=== PATIENT | female | born 1980 | race Caucasian/White ===

== ENCOUNTER 2019-05-16 09:20 | Emergency (ER) | payer MEDICAID ==
[~2019-05-16] VITALS: Ht 175.3 cm; Wt 121.1 kg
[~2019-05-16 09:20] MED LIST: ALPR0.5T3 PO; OMEP20TA62 PO
--- NOTE | 2019-05-16 09:32 | NUR ---
39 Y/O FEMALE PRESENTS TO ED WITH C/O ABD PAIN. PER PT "I'M HAVING SOME PAIN IN MY LEFT ABDOMEN. I ENDED MY PERIOD THURSDAY. I USUALLY PRODUCE CYSTS. BUT IT'S A DIFFERENT PAIN. I HAVE SOME NAUSEA. THE PAIN DOESN'T WRAP AROUND TO MY BACK AND IT DOESN'T HURT WHEN I PEE. IT'S A VERY SHARP PAIN. LASTS 5-10 MINS. RIGHT NOW THE PAIN IS DULL." NO C/O V/D, TRAUMA, SYNCOPE, CP, SOB. PT PLACED ON CONT PULSE OX,NIBP. EDMD BEDSIDE. Addendum: 05/16/19 at 0948 by SUZI "LASTS 5-10 SECONDS" NOT MINTUES.
[2019-05-16] MEDS ORDERED: ONDANSETRON ODT 4 MG ONE (09:44)
[2019-05-16] MEDS ORDERED: AMLO10TA8 PO (09:47)
[2019-05-16 09:49] VITALS: BP 125/83
--- NOTE | 2019-05-16 09:49 | NUR ---
BEDSIDE REPORT TO JULEE CORDOVA.
--- NOTE | 2019-05-16 09:52 | NUR ---
PT TO IMAGING.
[2019-05-16 09:59] LABS: CULTURE INDICATED? YES; MICROSCOPIC INDICATED
[2019-05-16] MEDS ORDERED: ONDANSETRON ODT 4 MG PO ONE (10:00)
--- NOTE | 2019-05-16 10:11 | NUR ---
PATIENT BACK FROM ULTRASOUND. CALL BUTTON IN LAP. SIDE RAILS UP X2 FOR SAFETY.
[2019-05-16 10:23] LABS: BASOPHILS # (AUTO) 0.04 x10^3/uL (0-0.1); BASOPHILS % (AUTO) 1 % (0-1); EOSINOPHILS # (AUTO) 0.08 x10^3/uL (0-0.4); EOSINOPHILS % (AUTO) 1 % (1-7); LYMPHOCYTES # (AUTO) 2.35 x10^3/uL (1-3.4); LYMPHOCYTES % (AUTO) 31 % (22-44); MD NO; MEAN CORPUSCULAR HEMOGLOBIN 31.2 pg (27.0-34.8); MEAN CORPUSCULAR HGB CONC 33.5 g/dL (32.4-35.8); MEAN CORPUSCULAR VOLUME 93.1 fL (80-100); MEAN PLATELET VOLUME 7.5 fL (7.4-10.4); MONOCYTES # (AUTO) 0.44 x10^3/uL (0.2-0.8); MONOCYTES % (AUTO) 6 % (2-9); NEUTROPHILS # (AUTO) 4.58 x10^3/uL (1.8-6.8); NEUTROPHILS % (AUTO) 61 % (42-75); PLATELET COUNT 340 x10^3/uL (130-400); RED BLOOD COUNT 4.72 x10^6/uL (3.82-5.3); RED CELL DISTRIBUTION WIDTH 13.4 % (9.6-15.2)
[2019-05-16 10:36] LABS: ALANINE AMINOTRANSFERASE 33 U/L (12-78); ALBUMIN 3.4 g/dL (3.4-5.0); ANION GAP 7 mmol/L (5-15); CALCIUM 8.7 mg/dL (8.5-10.1); CHLORIDE 110 mmol/L (98-107); CREATININE 1.11 mg/dL (0.55-1.02)
[2019-05-16 10:40] LABS: ALKALINE PHOSPHATASE 84 U/L (45-117); BILIRUBIN,TOTAL 0.2 mg/dL (0.2-1.0); TOTAL PROTEIN 7.5 g/dL (6.4-8.2)
--- NOTE | 2019-05-16 11:06 | NUR ---
Patient/Caregiver given discharge instructions and they have confirmed that they understand the instructions. Patient ambulatory with steady gait.
== END 2019-05-16 11:07 | disposition home or self-care (01) ==
LOC: ED 10:56
DX: N30.00 Acute cystitis without hematuria (principal); I10 Essential (primary) hypertension; F17.200 Nicotine dependence, unspecified, uncomplicated
CPT/HCPCS: 36415; 76830; 80053; 81001; 84703; 85025; 87086; 99284; Q0162

== ENCOUNTER 2019-07-05 08:47 | Outpatient (CLI) | payer MEDICAID | END 2019-07-05 23:59 | disposition home or self-care (01) | LOC: CVU 08:47 | PROVIDERS: ATTEND Internal Medicine Cardiovascular Disease | DX: I11.9 Hypertensive heart disease without heart failure (principal); F17.200 Nicotine dependence, unspecified, uncomplicated | CPT/HCPCS: 93306 ==

== ENCOUNTER → 2021-05-15 | Outpatient (CLI) | payer MEDICAID ==
[~2021-05-15] MED LIST changes: +AMLO-211 PO
== END | disposition home or self-care (01) ==
LOC: PETCFH 07:25
PROVIDERS: ATTEND Surgery
DX: C43.4 Malignant melanoma of scalp and neck (principal); M25.80 Other specified joint disorders, unspecified joint
CPT/HCPCS: 78816; A9552